=== PATIENT | female | born 1965 | race Two or more races ===

== ENCOUNTER → 2023-10-31 | Emergency (ER) | payer MEDICAID ==
[~2023-10-31] VITALS: Ht 149.9 cm; Wt 68.0 kg
[~2023-10-31] MED LIST: CLONIDINE HCL 0.1 MG TABLET ONE; DIAZEPAM 10 MG/2 ML DISP.SYRIN ONE; IBUP-1955 PO; KETOROLAC TROMETHAMINE 30 MG INJ ONE; METH-806 PO
[2023-10-31] MEDS: DIAZEPAM 10 MG/2 ML DISP.SYRIN IV ONE (19:18)
[2023-10-31 19:35] LABS: CALCIUM 9.5 mg/dL (8.5-10.1); CREATININE 0.5 mg/dL (0.6-1.3)
[2023-10-31 19:41] LABS: ALBUMIN 3.8 g/dL (3.4-5.0); BILIRUBIN,TOTAL 0.6 mg/dL (0.2-1.0); TOTAL PROTEIN, SERUM 7.9 g/dL (6.4-8.2)
[2023-10-31 19:42] LABS: BASOPHILS # (AUTO) 0.1 K/UL (0.0-0.2); BASOPHILS % (AUTO) 0.8 % (0.0-2.0); EOSINOPHILS # (AUTO) 0.2 K/uL (0.0-0.7); EOSINOPHILS % (AUTO) 1.8 % (0.0-7.0); HEMATOCRIT 46.8 % (31.2-41.9); HEMOGLOBIN 15.7 g/dL (10.9-14.3); LYMPHOCYTES # (AUTO) 3.7 K/uL (0.8-4.8); MEAN CORPUSCULAR HEMOGLOBIN 28.5 uug (24.7-32.8); MEAN CORPUSCULAR HGB CONC 34 g/dL (32.3-35.6); MEAN CORPUSCULAR VOLUME 84.9 fL (75.5-95.3); MONOCYTES # (AUTO) 0.6 K/uL (0.1-1.30); MONOCYTES % (AUTO) 6.6 % (0.0-11.0); NEUTROPHILS # (AUTO) 5.1 K/uL (1.8-8.9); NEUTROPHILS % (AUTO) 52.8 % (38.5-71.5); PLATELET COUNT (AUTO) 213 K/uL (179-408); RED BLOOD CELL COUNT(AUTO) 5.51 MIL/uL (3.63-4.92); RED CELL DISTRIBUTION WIDTH 13.5 % (12.3-17.7); WHITE BLOOD COUNT (AUTO) 9.6 K/uL (3.8-11.8)
[2023-10-31 19:46] LABS: DIFFERENTIAL COMMENT 1
[2023-10-31 19:48] LABS: POTASSIUM 4.4 mmol/L (3.5-5.1)
[2023-10-31] MEDS: KETOROLAC TROMETHAMINE 30 MG INJ IVP ONE (20:31)
[2023-10-31 20:50] VITALS: BP 182/103
[2023-10-31] MEDS: CLONIDINE HCL 0.1 MG TABLET PO ONE (20:50)
[2023-10-31 21:55] VITALS: O2SAT 96
== END | disposition home or self-care (01) ==
LOC: ER 18:12
DX: G24.3 Spasmodic torticollis (principal); I50.9 Heart failure, unspecified; Z79.899 Other long term (current) drug therapy; Z88.2 Allergy status to sulfonamides
CPT/HCPCS: 99285; 96374; 96375; 80053; 83880; 85025; 84484; 36415; 93005; 72040; J3360; J1885; A4606; A4663

== ENCOUNTER 2025-04-02 21:46 | Inpatient (IN) | payer MEDICAID ==
[~2025-04-02] VITALS: Ht 149.9 cm; Wt 60.0 kg
[~2025-04-02 21:46] MED LIST changes: -CLONIDINE HCL 0.1 MG TABLET ONE; -DIAZEPAM 10 MG/2 ML DISP.SYRIN ONE; -KETOROLAC TROMETHAMINE 30 MG INJ ONE
[2025-04-02] MEDS ORDERED: METOCLOPRAMIDE HCL 10 MG/2 ML VIAL IV ONE (22:15)
[2025-04-02] MEDS ORDERED: METOCLOPRAMIDE HCL 10 MG/2 ML VIAL ONE (22:21)
[2025-04-02] MEDS: diphenhydrAMINE 50 MG/1 ML VIAL IV ONE (22:30)
[2025-04-02] MEDS: PROCHLORPERAZINE EDISYLATE 10 MG/2 ML VIAL IV ONE (22:30)
[2025-04-02 22:34] LABS: CREATININE 0.6 mg/dL (0.6-1.3); SODIUM SERUM 140 mmol/L (136-145); UREA NITROGEN, BLOOD 11 mg/dL (7-18)
[2025-04-02 22:40] LABS: ASPARTATE AMINOTRANSFERASE 14 U/L (15-37); TOTAL PROTEIN, SERUM 8.7 g/dL (6.4-8.2)
[2025-04-02 22:46] LABS: PLATELET COUNT (AUTO) 238 K/uL (179-408); RED BLOOD CELL COUNT(AUTO) 6.23 MIL/uL (3.63-4.92); RED CELL DISTRIBUTION WIDTH 14.0 % (12.3-17.7); WHITE BLOOD COUNT (AUTO) 10.6 K/uL (3.8-11.8)
[2025-04-02] MEDS ORDERED: LABETALOL HCL 100 MG/20 ML VIAL IV ONE (23:15)
[2025-04-02] MEDS ORDERED: LABETALOL HCL 100 MG/20 ML VIAL ONE (23:17)
[2025-04-02] MEDS: LORAZEPAM 2 MG/1 ML VIAL IV ONE (23:40)
[2025-04-03] MEDS ORDERED: IOHEXOL 350 100 ML INFUS..BTL ONE (00:01)
[2025-04-03] MEDS ORDERED: IV NORMAL SALINE 250 ML IV ONE (00:01)
[2025-04-03] MEDS ORDERED: SWABABLE VALVE TRANSFER SET EA MC ONE (00:01)
[2025-04-03] MEDS: LABETALOL HCL 100 MG/20 ML VIAL IV ONE (00:25)
[2025-04-03] MEDS: KETOROLAC TROMETHAMINE 15 MG INJ IVP ONE (02:07)
[2025-04-03] MEDS: POTASSIUM CHLORIDE 20 MEQ TAB.PRT.SR PO ONE (02:12)
[2025-04-03] MEDS ORDERED: FAMOTIDINE. 20 MG/2 ML VIAL IV ONE (02:13)
[2025-04-03] MEDS: ACETAMINOPHEN 500 MG TABLET PO ONE (02:15)
[2025-04-03] MEDS: FAMOTIDINE. 20 MG/2 ML VIAL IV ONE (02:16)
[2025-04-03] MEDS ORDERED: FURO20TA4 PO (02:36)
[2025-04-03] MEDS ORDERED: ENOXAPARIN SODIUM 40 MG/0.4 ML DISP.SYRIN SQ ONE (08:11)
[2025-04-03] MEDS ORDERED: ONDANSETRON 4 MG/2 ML VIAL ONE (08:11)
[2025-04-03] MEDS: AMLODIPINE 5 MG TABLET PO SCH (08:12)
[2025-04-03] MEDS ORDERED: AMLODIPINE 5 MG TABLET ONE (08:12)
[2025-04-03] MEDS ORDERED: MORPHINE SULFATE 2 MG/1 ML DISP.SYRIN ONE (08:12)
[2025-04-03] MEDS: ONDANSETRON 4 MG/2 ML VIAL IV PRN (08:13)
[2025-04-03] MEDS: MORPHINE SULFATE 2 MG/1 ML DISP.SYRIN IV PRN (08:14)
[2025-04-03] MEDS: ENOXAPARIN SODIUM 40 MG/0.4 ML DISP.SYRIN SQ SCH (08:15)
[2025-04-03] MEDS: HYDROCHLOROTHIAZIDE 25 MG TABLET PO SCH (08:55)
[2025-04-03 09:57] VITALS: BP 140/88; TEMP 98.7
[2025-04-03] MEDS ORDERED: DEXTROSE 50% 50 ML DISP.SYRIN IV PRN (12:00)
[2025-04-03 12:07] VITALS: BP 116/74; TEMP 98.7
[2025-04-03 12:23] LABS: CREATININE 0.7 mg/dL (0.6-1.3); SODIUM SERUM 140.0 mmol/L (136-145); UREA NITROGEN, BLOOD 19.0 mg/dL (7-18)
[2025-04-03] MEDS: METOPROLOL TARTRATE 25 MG TABLET PO SCH (12:28)
[2025-04-03] MEDS: ASPIRIN 325 MG TABLET PO SCH (12:29)
[2025-04-03] MEDS ORDERED: NITROGLYCERIN 0.4 MG/TAB BOTTLE SL PRN (12:30)
[2025-04-03] MEDS ORDERED: ASPI-1169 PO (12:31)
[2025-04-03] MEDS ORDERED: NIFE-35 PO (12:34)
[2025-04-03] MEDS ORDERED: LOSA100T31 PO (12:34)
[2025-04-03] MEDS ORDERED: CARV12.52 PO (12:34)
[2025-04-03] MEDS ORDERED: BUSP15TA3 PO (12:35)
[2025-04-03] MEDS ORDERED: ROSU5TAB PO (12:35)
[2025-04-03] MEDS ORDERED: ACET-2605 PO (12:36)
[2025-04-03] MEDS ORDERED: NAPR220C15 PO (12:36)
[2025-04-03] MEDS: ATORVASTATIN 40 MG TABLET PO SCH (12:52)
[2025-04-03] MEDS ORDERED: CLONIDINE HCL 0.1 MG TABLET PO PRN (15:30)
[2025-04-03 15:57] VITALS: BP 143/85; TEMP 98.6
[2025-04-03] MEDS: SUMATRIPTAN SUCCINATE 6 MG/0.5 ML VIAL SQ ONE (16:05)
[2025-04-03] MEDS: BLOOD SUGAR DIAGNOSTIC 1 EACH STRIP VI SCH (16:12)
[2025-04-03 18:37] VITALS: BP 145/88; TEMP 98.7
[2025-04-03 20:15] VITALS: BP 155/96; TEMP 97.5; O2SAT 93
[2025-04-03] MEDS: CARVEDILOL 12.5 MG TABLET PO SCH (21:12)
[2025-04-04] VITALS (7 sets, daily range): BP systolic 122–183; BP diastolic 79–102; TEMP 97.6–98.9; O2SAT 93–98
[2025-04-04] MEDS: HYDROCODONE/APAP 5-325MG TABLET PO PRN (00:08)
[2025-04-04] MEDS: PANTOPRAZOLE SODIUM 40 MG TABLET.DR PO SCH (06:19)
[2025-04-04 06:26] LABS: PLATELET COUNT (AUTO) 231 K/uL (179-408); RED BLOOD CELL COUNT(AUTO) 5.51 MIL/uL (3.63-4.92); RED CELL DISTRIBUTION WIDTH 13.9 % (12.3-17.7); WHITE BLOOD COUNT (AUTO) 10.5 K/uL (3.8-11.8)
[2025-04-04 06:38] LABS: CREATININE 0.6 mg/dL (0.6-1.3); SODIUM SERUM 139.0 mmol/L (136-145); UREA NITROGEN, BLOOD 21.0 mg/dL (7-18)
[2025-04-04] MEDS: NIFEdipine XL 30 MG TABSR PO SCH (08:19)
[2025-04-04] MEDS: ASPIRIN 81 MG TAB.CHEW PO SCH (08:19)
[2025-04-04] MEDS: LOSARTAN POTASSIUM 50 MG TABLET PO SCH (08:20)
[2025-04-04] MEDS: FUROSEMIDE 20 MG TABLET PO SCH (09:48)
[2025-04-04] MEDS: CARVEDILOL 12.5 MG TABLET PO ONE (10:27)
[2025-04-04] MEDS: LOSARTAN POTASSIUM 50 MG TABLET PO ONE (10:28)
[2025-04-04] MEDS: INSULIN REGULAR, HUMAN 1000 UNIT/10 ML VIAL SQ PRN (12:23)
[2025-04-04] MEDS: METOPROLOL TARTRATE 50 MG TABLET PO ONE (13:14)
[2025-04-04] MEDS: CARVEDILOL 25 MG TABLET PO SCH (20:43)
[2025-04-04] MEDS ORDERED: CARVEDILOL 12.5 MG TABLET PO SCH (21:00)
[2025-04-05] VITALS: BP 148/85; TEMP 98.9; O2SAT 96
[2025-04-05 06:24] VITALS: BP 151/89; TEMP 98.1; O2SAT 96
[2025-04-05 06:24] LABS: CREATININE 0.6 mg/dL (0.6-1.3); SODIUM SERUM 141.0 mmol/L (136-145); UREA NITROGEN, BLOOD 19.0 mg/dL (7-18)
[2025-04-05 06:42] LABS: PLATELET COUNT (AUTO) 223 K/uL (179-408); RED BLOOD CELL COUNT(AUTO) 5.45 MIL/uL (3.63-4.92); RED CELL DISTRIBUTION WIDTH 13.9 % (12.3-17.7); WHITE BLOOD COUNT (AUTO) 9.9 K/uL (3.8-11.8)
[2025-04-05] MEDS: LOSARTAN POTASSIUM 50 MG TABLET PO SCH (08:32)
[2025-04-05] MEDS ORDERED: LOSARTAN POTASSIUM 50 MG TABLET PO SCH (09:00)
[2025-04-05 15:24] VITALS: BP 141/86; TEMP 97.8; O2SAT 96
[2025-04-05] MEDS: ACETAMINOPHEN 325 MG TABLET PO PRN (16:31)
[2025-04-05 19:20] VITALS: BP 159/87; TEMP 97.7; O2SAT 94
[2025-04-06 00:36] VITALS: BP 136/92; TEMP 98.5; O2SAT 94
[2025-04-06 04:32] VITALS: BP 164/94; TEMP 98.9; O2SAT 96
[2025-04-06 07:19] LABS: PLATELET COUNT (AUTO) 224 K/uL (179-408); RED BLOOD CELL COUNT(AUTO) 5.75 MIL/uL (3.63-4.92); RED CELL DISTRIBUTION WIDTH 13.8 % (12.3-17.7); WHITE BLOOD COUNT (AUTO) 10.3 K/uL (3.8-11.8)
[2025-04-06 07:26] LABS: CREATININE 0.7 mg/dL (0.6-1.3); SODIUM SERUM 141.0 mmol/L (136-145); UREA NITROGEN, BLOOD 20.0 mg/dL (7-18)
[2025-04-06 08:00] VITALS: BP 139/92; TEMP 98.8; O2SAT 96
[2025-04-06] MEDS: POTASSIUM CHLORIDE 20 MEQ POWDER PACKET GT ONE (08:38)
[2025-04-06] MEDS: LOSARTAN POTASSIUM 50 MG TABLET PO SCH (08:38)
[2025-04-06 19:55] VITALS: BP 139/80; TEMP 99.4; O2SAT 94
[2025-04-07 00:30] VITALS: BP 119/68; TEMP 99.1; O2SAT 95
[2025-04-07] MEDS: TICAGRELOR 90 MG TABLET PO SCH ×2 (03:45→09:24)
[2025-04-07 04:42] VITALS: BP 157/89; TEMP 98.6; O2SAT 96
[2025-04-07 06:42] LABS: PLATELET COUNT (AUTO) 230 K/uL (179-408); RED BLOOD CELL COUNT(AUTO) 5.48 MIL/uL (3.63-4.92); RED CELL DISTRIBUTION WIDTH 13.8 % (12.3-17.7); WHITE BLOOD COUNT (AUTO) 16.8 K/uL (3.8-11.8)
[2025-04-07 06:56] LABS: CREATININE 0.8 mg/dL (0.6-1.3); SODIUM SERUM 139.0 mmol/L (136-145); UREA NITROGEN, BLOOD 21.0 mg/dL (7-18)
[2025-04-07 08:00] VITALS: BP 137/84; TEMP 98.9; O2SAT 96
[2025-04-07] MEDS ORDERED: POTASSIUM CHLORIDE 20 MEQ POWDER PACKET GT ONE (08:15)
[2025-04-07] MEDS: POTASSIUM CHLORIDE 20 MEQ TAB.PRT.SR PO ONE (09:11)
[2025-04-07 12:00] VITALS: BP 133/80; TEMP 98.5; O2SAT 95
[2025-04-07] MEDS: METOCLOPRAMIDE HCL 10 MG/2 ML VIAL IV ONE (12:29)
[2025-04-07] MEDS: diphenhydrAMINE 50 MG/1 ML VIAL IV ONE (12:30)
[2025-04-07] MEDS: POTASSIUM CHLORIDE 50 ML IV SCH (13:21)
[2025-04-07] MEDS ORDERED: TICA90TA PO (13:38)
[2025-04-07] MEDS ORDERED: HYDR25TA4 PO (13:38)
[2025-04-07] MEDS ORDERED: ROSU40TA PO (13:38)
[2025-04-07] MEDS ORDERED: LOSA100T31 PO (13:38)
[2025-04-07] MEDS ORDERED: SUMA50TA PO (13:38)
[2025-04-07] MEDS ORDERED: NIFE-35 PO (13:38)
[2025-04-07] MEDS ORDERED: CARV25TA PO (13:38)
[2025-04-07] MEDS ORDERED: ASPI-1169 PO (13:38)
[2025-04-07 16:08] VITALS: BP 133/73; TEMP 99.3; O2SAT 94
[2025-04-07 19:52] VITALS: BP 130/87; TEMP 98.3; O2SAT 95
[2025-04-08 00:13] VITALS: BP 105/63; TEMP 98.1; O2SAT 96
[2025-04-08 04:50] VITALS: BP 128/75; TEMP 98.3; O2SAT 95
[2025-04-08 06:48] LABS: PLATELET COUNT (AUTO) 197 K/uL (179-408); RED BLOOD CELL COUNT(AUTO) 5.05 MIL/uL (3.63-4.92); RED CELL DISTRIBUTION WIDTH 13.6 % (12.3-17.7); WHITE BLOOD COUNT (AUTO) 7.8 K/uL (3.8-11.8)
[2025-04-08 07:01] LABS: CREATININE 0.7 mg/dL (0.6-1.3); SODIUM SERUM 139.0 mmol/L (136-145); UREA NITROGEN, BLOOD 25.0 mg/dL (7-18)
[2025-04-08 07:44] VITALS: BP 138/83; TEMP 97.9; O2SAT 95
[2025-04-08 11:11] VITALS: BP 128/75
[2025-04-08] MEDS ORDERED: METO-295 PO (11:59)
== END 2025-04-08 18:55 | disposition home or self-care (01) | DRG 175 ==
LOC: ER 21:54 → TELE3 04-03 03:04 → MEDSURG3 04-08 08:35
PROVIDERS: ADMIT Nurse Practitioner Acute Care; ATTEND Nurse Practitioner Acute Care
PROC: 02703DZ Dilation of Coronary Artery, One Artery with Intraluminal Device, Percutaneous Approach (ICD-10-PCS; principal; 2025-04-06)
DX: I16.9 Hypertensive crisis, unspecified (principal); I21.A1 Myocardial infarction type 2; I24.9 Acute ischemic heart disease, unspecified; I11.0 Hypertensive heart disease with heart failure; I77.810 Thoracic aortic ectasia; G43.919 Migraine, unspecified, intractable, without status migrainosus; I50.32 Chronic diastolic (congestive) heart failure; E87.6 Hypokalemia; I25.10 Atherosclerotic heart disease of native coronary artery without angina pectoris; E78.5 Hyperlipidemia, unspecified; K21.9 Gastro-esophageal reflux disease without esophagitis; R00.0 Tachycardia, unspecified; Z79.82 Long term (current) use of aspirin; Z79.899 Other long term (current) drug therapy; K44.9 Diaphragmatic hernia without obstruction or gangrene; J98.11 Atelectasis; R11.2 Nausea with vomiting, unspecified; Z88.2 Allergy status to sulfonamides; F41.9 Anxiety disorder, unspecified; D72.829 Elevated white blood cell count, unspecified
CPT/HCPCS: 36415; 70450; 71045; 71260; 83690; 83735; 84100; 84484; 85025; 85610; 85730; 93005; 93307; G0378; J0360; J0780; J1200; J1308; J1650; J1815; J1885; J2060; J2270; J2405; J2765; J3030; J3480; J3490; J7040; Q9967